=== PATIENT | female | born 1960 | race Caucasian/White ===

== ENCOUNTER → 2022-07-02 13:29 | Outpatient (BNVA) | payer MEDICAID, SELFPAY | PROVIDERS: PCP Family Medicine Adult Medicine; Visit Provider Family Medicine Adult Medicine | DX: Z13.9 Encounter for screening, unspecified (principal) | CPT/HCPCS: 80053; 84443; 85025 ==

== ENCOUNTER 2022-08-19 13:27 | Outpatient (CLI) | payer MEDICAID, SELFPAY ==
--- NOTE | 2022-08-19 13:42 | CT_ITS ---
WS: [id number] LDCT LUNG CANCER SCREENING HISTORY: SMOKER TECHNIQUE: Axial imaging performed from the apices to 1 cm below the costophrenic angles. Coronal and sagittal reformats are submitted with axial MIP series. All CT scans at [facility] use at least one of these dose optimization techniques: automated exposure control; mA and/or kV adjustment per patient size (includes targeted exams where dose is matched to clinical indication); or iterativ e reconstruction. DLP: 39.91 mGy.cm DIvol: Mean CTDIvol: 0.60 (mGy) COMPARISON: None available. Diagnostic quality: Satisfactory Lungs: No pulmonary nodules or mass. No endobronchial lesions. Heart: Normal size heart with no pericardial effusion. Other findings: Severe thoracolumbar scoliosis. CT/CT lung screening [id number] IMPRESSION: LUNG-RADS: 1-Negative FOLLOW UP: 12 Month: Continue annual screening with LDCT OTHER FINDINGS (S MODIFIER): None.
== END 2022-08-19 13:28 | disposition home or self-care (01) ==
LOC: RAD 13:28
PROVIDERS: PCP Family Medicine Adult Medicine; Visit Provider Family Medicine Adult Medicine
DX: Z12.2 Encounter for screening for malignant neoplasm of respiratory organs (principal); F17.200 Nicotine dependence, unspecified, uncomplicated
CPT/HCPCS: 71271; 80053; 84443; 85025

== ENCOUNTER 2022-09-11 14:23 | Outpatient (CLI) | payer MEDICAID, SELFPAY ==
--- NOTE | 2022-09-11 14:45 | USCV_ITS ---
Ava Nelson Age: 62 Gender: F : 1960 Exam Date: 09/11/2022 15:25 Ordering Phys: Marcos Lopez MD Technologist: CT [place]am [place] [facility] [place] Indication: cold feet Risk Factors: Previous Vascular Surgery: RIGHT LEFT BP: 128.0 / 65.00 BP: / 0 Waveform Velocity (cm/s) Velocity (cm/s) Waveform Triphasic 94.1 Iliac Prox Triphasic 90.9 Iliac Mid Triphasic 101.8 Iliac Distal Triphasic BAND HEAD SAW OPERATOR 82.3 Triphasic 95.9 SFA Prox Triphasic 101.5 SFA Mid Triphasic 86.2 SFA Dist Triphasic 54.6 POP Biphasic 4104. HEALTH INFORMATICS SPECIALIST 0 Biphasic 29.9 DPA 1.0 MIKO FINDINGS Resting MIKO 1.0 on the right side. Normal Doppler flow velocities. Normal Doppler waveforms CONCLUSIONS Normal resting MIKO of the right side No evidence of any significant arterial obstruction, based on the above findings. Dr Surendra Weiss MD [facility] (Electronically Signed) Final Date: 11 September 2022 21:16 S
== END 2022-09-11 14:24 | disposition home or self-care (01) ==
PROVIDERS: PCP Family Medicine Adult Medicine; Visit Provider Family Medicine Adult Medicine
DX: I73.9 Peripheral vascular disease, unspecified (principal); Z89.619 Acquired absence of unspecified leg above knee
CPT/HCPCS: 93926

== ENCOUNTER → 2022-09-19 09:08 | Outpatient (BNVA) | payer MEDICAID, SELFPAY | PROVIDERS: PCP Family Medicine Adult Medicine; Visit Provider Thoracic Surgery (Cardiothoracic Vascular Surgery) | DX: I73.9 Peripheral vascular disease, unspecified (principal) | CPT/HCPCS: 99203 ==

== ENCOUNTER → 2022-10-24 10:41 | Outpatient (BNVA) | payer MEDICAID, SELFPAY | PROVIDERS: PCP Family Medicine Adult Medicine; Visit Provider Thoracic Surgery (Cardiothoracic Vascular Surgery) | DX: I73.9 Peripheral vascular disease, unspecified (principal); F17.210 Nicotine dependence, cigarettes, uncomplicated | CPT/HCPCS: 99212 ==

== ENCOUNTER 2023-11-19 10:35 | Outpatient (CLI) | payer MEDICAID, SELFPAY ==
--- NOTE | 2023-11-19 10:41 | XRR_ITS ---
PROCEDURE INFORMATION: Exam: XR Right Hip Exam date and time: 11/19/2023 10:47 AM Age: 63 years old Clinical indication: Hip pain; Right hip; Additional info: Right hip pain TECHNIQUE: Imaging protocol: Radiologic exam of the right hip. Views: 1 view hip with pelvis when performed. COMPARISON: CT abdomen pelvis w con* [id number] 05/26/2018 12:27 PM FINDINGS: Bones/joints: Severe arthritic change involves the hip joint with total loss of superior joint space. There is prominent bony spurring along with subchondral sclerosis and cystic change involving the acetabulum and femoral head. No fracture noted. Soft tissues: Unremarkable. XR/XR hip RT 2-3V wo/w pel* [id number] IMPRESSION: Prominent arthritic changes
--- NOTE | 2023-11-19 10:41 | XRR_ITS ---
PROCEDURE INFORMATION: Exam: XR Left Shoulder Exam date and time: 11/19/2023 10:47 AM Age: 63 years old Clinical indication: Pain; Shoulder; Left; Additional info: Left shoulder pain TECHNIQUE: Imaging protocol: Radiologic exam of the left shoulder. Views: 2 or more views. COMPARISON: CT lung screening [id number] 08/19/2022 2:00 PM FINDINGS: Bones/joints: Prominent arthritic changes are noted with total loss of glenohumeral joint space and prominent spurring with bony sclerosis involving the humeral head and glenoid fossa. No fracture noted. Soft tissues: Normal. XR/XR shoulder LT min 2V* [id number] IMPRESSION: Prominent arthritic changes
== END 2023-11-19 10:36 | disposition home or self-care (01) ==
LOC: RAD 10:38
PROVIDERS: PCP Family Medicine Adult Medicine; Visit Provider Pediatrics
DX: M19.012 Primary osteoarthritis, left shoulder (principal); G89.21 Chronic pain due to trauma; M25.551 Pain in right hip; M16.11 Unilateral primary osteoarthritis, right hip; M25.851 Other specified joint disorders, right hip
CPT/HCPCS: 73030; 73502

== ENCOUNTER → 2023-12-09 13:30 | Outpatient (BNVA) | payer MEDICAID, SELFPAY | PROVIDERS: PCP Family Medicine Adult Medicine; Visit Provider Internal Medicine | DX: I73.9 Peripheral vascular disease, unspecified (principal); F17.200 Nicotine dependence, unspecified, uncomplicated | CPT/HCPCS: 99214 ==

== ENCOUNTER → 2023-12-22 13:46 | Outpatient (BNVA) | payer MEDICAID, SELFPAY | PROVIDERS: PCP Family Medicine Adult Medicine; Visit Provider Specialist | DX: M16.11 Unilateral primary osteoarthritis, right hip (principal) | CPT/HCPCS: 73502; 99204 ==

== ENCOUNTER 2024-01-02 14:04 | Outpatient (CLI) | payer MEDICAID, SELFPAY ==
--- NOTE | 2024-01-02 14:45 | USCV_ITS ---
Ava Nelson Age: 63 Gender: F : 1960 Exam Date: 01/02/2024 14:28 Ordering Phys: Nathan Cole M.D ([email or web address]) Technologist: DAREN Exam Location: [facility] – [place] Indication: pain Risk Factors: Previous Vascular Surgery: RIGHT LEFT BP: 122.0 / 66.00 BP: 122.0/ 78.00 0 0 Waveform Velocity (cm/s) Velocity (cm/s) Waveform Triphasic 112.2 Iliac Prox Triphasic 107.0 Iliac Mid Triphasic 103.9 Iliac Distal Triphasic 153.0 SCREW MACHINE SET UP OPERATOR TOOL Triphasic 137.0 SFA Prox Triphasic 123.0 SFA Mid Triphasic 76.0 SFA Dist Triphasic 48.0 POP Triphasic 82.0 COMBINATION WORKER Triphasic 26.0 DPA 1.1 MIKO FINDINGS Resting MIKO of 1.1 on the right side Normal arterial Doppler waveforms and velocities on the right side CONCLUSIONS No significant arterial obstruction in the right lower extremity based on the above findings Dr Surendra Weiss MD [facility] (Electronically Signed) Final Date: 05 January 2024 09:32 S
== END 2024-01-02 14:05 | disposition home or self-care (01) ==
LOC: RAD 14:05
PROVIDERS: PCP Family Medicine Adult Medicine; Visit Provider Internal Medicine
DX: M79.604 Pain in right leg (principal)
CPT/HCPCS: 93926

== ENCOUNTER 2024-01-21 08:13 | Outpatient (CLI) | payer MEDICAID, SELFPAY ==
--- NOTE | 2024-01-21 08:45 | NMR_ITS ---
PROCEDURE INFORMATION: Exam: CT Bone and/or Joint, 3 Phase Exam date and time: 01/21/2024 8:45 AM Age: 63 years old Clinical indication: Bone pain; Hip; Right; Prior surgery; Surgery date: 6+ months; Surgery type: Left leg amputated TECHNIQUE: Imaging protocol: Nuclear 3 phase bone scan was obtained. Views: Frontal and posterior anterior blood flow imaging, anterior and posterior blood pool imaging, whole-body and spot imaging. Total images: 3 Radiopharmaceutical: 24.8 mCi Tc-99m HDP (Oxidronate), IV. Time of imaging post radiopharmaceutical administration: 2 hours COMPARISON: Hip radiographs 11/19/2023 FINDINGS: Skeleton: Blood flow images, in the anterior projection only do not demonstrate significant hypervascularity in the right hip. Blood pool images demonstrate hyperemia adjacent to the right hip joint. Delayed (3rd phase) images demonstrate marked uptake within the right hip, within the resolution of the study thought to involve both femoral head and acetabulum. Scattered foci of uptake are identified in the lower thoracic and the lumbar spine, most prominent at approximately left L5-S1 facet joint region. There is levo scoliosis of the lumbar spine. Mild uptake is present in the medial compartment of the right knee. 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 There is [id number] uptake within the left glenohumeral joint likely degenerative. Small amount of uptake present within both wrists likely degenerative. Other findings: Bladder activity is identified in addition to bilateral renal activity. NM/NM bone 3 phase [id number] IMPRESSION: 1. Three-phase imaging of the pelvis demonstrates hyperemia and marked 3rd phase uptake in the right hip which would be consistent with accelerated turnover of bone, and adjacent hyperemia. Findings would be consistent with degenerative/inflammatory changes. Please note that superimposed infection cannot be radiographically excluded. 2. Uptake in the lower thoracic and in the lumbar spine most likely degenerative. 3. Uptake in the left glenohumeral joint and medial compartment right knee most consistent with degenerative changes.
== END 2024-01-21 08:14 | disposition home or self-care (01) ==
LOC: RAD 08:14
PROVIDERS: PCP Family Medicine Adult Medicine; Visit Provider Specialist
DX: M16.10 Unilateral primary osteoarthritis, unspecified hip (principal); M25.551 Pain in right hip; V89.2XXA Person injured in unspecified motor-vehicle accident, traffic, initial encounter; Z89.619 Acquired absence of unspecified leg above knee; R93.7 Abnormal findings on diagnostic imaging of other parts of musculoskeletal system
CPT/HCPCS: 78315; A9561

== ENCOUNTER → 2024-02-04 11:15 | Outpatient (BNVA) | payer MEDICAID, SELFPAY | PROVIDERS: PCP Family Medicine Adult Medicine; Visit Provider Specialist | DX: M16.11 Unilateral primary osteoarthritis, right hip (principal); M25.561 Pain in right knee; G89.29 Other chronic pain | CPT/HCPCS: 99214 ==

== ENCOUNTER → 2024-05-31 10:22 | Outpatient (BNVA) | payer MEDICAID, SELFPAY | PROVIDERS: PCP Family Medicine; Visit Provider Family Medicine | DX: I73.9 Peripheral vascular disease, unspecified (principal) | CPT/HCPCS: 80053; 80061; 84439; 84443; 85025 ==

== ENCOUNTER 2024-06-03 10:53 | Outpatient (CLI) | payer MEDICAID, SELFPAY ==
--- NOTE | 2024-06-03 11:00 | XR_ITS ---
WS: [id number] Exam: XR shoulder LT min 2V* [id number] Date/Time of Exam: 06/03/2024 11:24 AM Reason For Exam: L shoulder arthritis Comparison 11/19/2023. There is end-stage osteoarthritis of the glenohumeral joint with [id number]. Prominent osteophytes project from the inferior margin of the glenoid and the medial aspect of the humeral head. There appear to be numerous calcified loose joint bodies in the joint. Minimal DJD at the AC joint. Normal soft tissues otherwise. XR/XR shoulder LT min 2V* [id number] IMPRESSION: 1. End-stage osteoarthritis of the glenohumeral joint with [id number]. Chondr ocalcinosis and probable loose joint bodies in the glenohumeral joint. 2. High riding humeral head most likely indicates longstanding rotator cuff tea r.
== END 2024-06-03 10:54 | disposition home or self-care (01) ==
LOC: RAD 10:54
PROVIDERS: PCP Family Medicine; Visit Provider Family Medicine
DX: M19.012 Primary osteoarthritis, left shoulder (principal); M11.212 Other chondrocalcinosis, left shoulder; R93.7 Abnormal findings on diagnostic imaging of other parts of musculoskeletal system; M25.712 Osteophyte, left shoulder
CPT/HCPCS: 73030

== ENCOUNTER → 2024-09-07 13:52 | Outpatient (BNVA) | payer MEDICAID, SELFPAY | PROVIDERS: PCP Family Medicine; Visit Provider Internal Medicine | DX: I73.9 Peripheral vascular disease, unspecified (principal); F17.210 Nicotine dependence, cigarettes, uncomplicated | CPT/HCPCS: 99213 ==